=== PATIENT | female | born 1950 | race Caucasian/White ===

== ENCOUNTER 2016-07-26 05:55 | Inpatient (IN) | payer OTHER ==
[~2016-07-26 05:55] MED LIST: ceFAZolin 2 GM/DEXTROSE 100 ML IV ONE
[2016-07-26] MEDS ORDERED: BUPIVACAINE/EPI 0.25% 30 ML SDV ONE (06:35)
[2016-07-26] MEDS ORDERED: BACITRACIN 50,000 UNITS/10 ML SYR IRR ONE ×2 (06:35→10:09)
[2016-07-26] MEDS ORDERED: THROMBIN (RECOMBINANT) 20,000 UNIT VIAL TP ONE (06:35)
[2016-07-26] MEDS ORDERED: ceFAZolin 2 GM/DEXTROSE 100 ML IV ONE (07:00)
[2016-07-26] MEDS ORDERED: DEXAMETHASONE 10 MG/ML VIAL IV ONE (07:00)
[2016-07-26] MEDS ORDERED: LIDOCAINE 1% 5 ML SDV ONE (07:03)
[2016-07-26] MEDS ORDERED: PROPOFOL/EMULSION 500 MG/50 ML BOTTLE IV ONE ×3 (07:24→12:04)
[2016-07-26] MEDS ORDERED: fentaNYL 250 MCG/5 ML INJ ONE (07:24)
[2016-07-26] MEDS ORDERED: REMIFENTANIL HCL 1 MG VIAL ONE ×3 (07:24→12:04)
[2016-07-26] MEDS ORDERED: ROCURONIUM 50 MG/5 ML VIAL ONE (07:25)
[2016-07-26] MEDS ORDERED: LIDOCAINE 2% 100 MG/5 ML SYR IVP ONE (07:25)
[2016-07-26] MEDS ORDERED: ALBUMIN 5% 250 ML BOTTLE IV ONE (07:27)
[2016-07-26] MEDS ORDERED: DOPamine/DEXTROSE/250 ML BAG IV ONE (07:27)
[2016-07-26] MEDS ORDERED: SCOPOLAMINE HYDROBROMIDE 1.5 MG PATCH TD ONE (07:30)
[2016-07-26] MEDS ORDERED: MIDAZOLAM 2 MG/2 ML VIAL ONE (07:38)
[2016-07-26 09:13] LABS: BICARBONATE 22 mEq/L (22-26); MEASURED OXYGEN SATURATION 100 % (92-95); PCO2 34 mmHg (34-38); PO2 362 mmHg (65-75); TCO2 23 mEq/L (23-27)
[2016-07-26 10:28] LABS: % IMMATURE GRANULYOCYTES 0.5 % (0.0-1.1); ABSOLUTE IMMATURE GRANULOCYTES 0.04 10^3/uL (0.00-0.10); ADD DIFF? NO; ADD MORPH? NO; ADD SCAN? NO; ATYPICAL LYMPHOCYTE FLAG 0 (0-99); FRAGMENT RBC FLAG 0 (0-99); HEMATOCRIT 40.9 % (38.0-47.0); HEMOGLOBIN 14.2 g/dL (12.6-16.3); LEFT SHIFT FLG 10 (0-99); LIPEMIA HEMOLYSIS FLAG 90 (0-99); MEAN CELL HEMOGLOBIN 30.2 pg (27.9-34.1); MEAN CELL HEMOGLOBIN CONCENTR. 34.7 g/dL (32.4-36.7); MEAN PLATELET VOLUME 10.1 fL (8.7-11.7); PLATELET CLUMPS FLAG 0 (0-99); PLATELET COUNT 355 10^3/uL (150-400); RED CELL DISTRIBUTION WIDTH 12.7 % (11.5-15.2)
[2016-07-26 10:51] LABS: ALANINE AMINOTRANSFERASE 32 IU/L (9-52); ALBUMIN 4.1 g/dL (3.5-5.0); ALKALINE PHOSPHATASE 109 IU/L (38-126); ANION GAP 10 mEq/L (8-16); ASPARTATE AMINOTRANSFERASE 26 IU/L (14-46); BILIRUBIN,TOTAL 1.1 mg/dL (0.1-1.4); CARBON DIOXIDE 23 mEq/l (22-31); CHLORIDE 109 mEq/L (97-110); CREATININE 0.7 mg/dL (0.6-1.0); GLOMERULAR FILTRATION RATE > 60; GLUCOSE 186 mg/dL (70-100); MAGNESIUM 1.9 mg/dL (1.6-2.3); POTASSIUM 3.7 mEq/L (3.5-5.2); SODIUM 142 mEq/L (134-144)
[2016-07-26] MEDS ORDERED: POTASSIUM Cl (KCl) 20 MEQ/50 ML BAG IV ONE (11:00)
[2016-07-26] MEDS ORDERED: ACETAMINOPHEN 325 MG TAB PO PRN (12:50)
[2016-07-26] MEDS ORDERED: ONDANSETRON 4 MG/2 ML VIAL IVP PRN (12:50)
[2016-07-26] MEDS ORDERED: OXYCODONE/APAP 5/325 TAB PO PRN (12:50)
[2016-07-26] MEDS ORDERED: DIAZEPAM 5 MG TAB PO PRN (12:50)
[2016-07-26] MEDS ORDERED: BISACODYL 10 MG SUPP PR PRN (12:50)
[2016-07-26] MEDS ORDERED: DIAZEPAM 10 MG/2 ML SYR IVP PRN (12:50)
[2016-07-26] MEDS ORDERED: LACTULOSE 20 GM/30 ML UDCUP PO PRN (12:50)
[2016-07-26] MEDS ORDERED: MAGNESIUM HYDROXIDE 30 ML UDCUP PO PRN (12:50)
[2016-07-26] MEDS ORDERED: NS W/ 20 KCl/L 1,000 ML IV SCH (13:00)
[2016-07-26] MEDS ORDERED: PHENYLEPHRINE HCL 50 MG in D5W 250 ML IV SCH (13:30)
--- NOTE | 2016-07-26 14:01 | DX ---
Portable Chest 13:50 History: Postoperative central line placement, spinal cord tumor Comparison: None Findings: A right jugular venous catheter is present with tip in the superior vena cava. There is no pneumothorax. No pulmonary consolidation or pleural fluid. Impression: Excellent catheter position without pneumothorax.
--- NOTE | 2016-07-26 16:35 | POSTOPPROG ---
Post Op Note Date of Operation: 07/26/16 Surgeon: Michael Hayden Paper Cutter Operator: Ayla Montano MPAS PAC Anesthesia: GET(General Endotracheal) Pre-op Diagnosis: throacic spine mass Post-op Diagnosis: thoracic spine mass Indication: right leg weakness, cord compression Procedure: T5-7 lamienctomy and lesion resection. Inf/Abcess present in the surg proc area at time of surgery?: No PA Addendum - Addendum .: S: Incisional site pain, leg strength stable O: NAD A&Ox3 MAEx4, BUE and LLE 5/5, right HF/quad/ham 4-/5, EHL5/5. Incisional dressing c/d/i Plan: -Admit to ICU overnight, keep MAPs >85 -Optimize pain management -Advance diet as tolerated -Final path pending -Please notify NS with any change in neuro/motor exam
[2016-07-26] MEDS ORDERED: oxyCODONE IR 5 MG TAB PO PRN (16:39)
--- NOTE | 2016-07-26 18:24 | DX ---
Intraoperative Fluoroscopy History: Spinal cord tumor resection Dose = 4.47 mGy Findings: A single PA and lateral view of the cervical spine demonstrates normal alignment . An ET tu be is seen coursing through the trachea. Impression: Anatomic intraoperative alignment.
[2016-07-26] MEDS: METHOCARBAMOL 750 MG TAB PO PRN (19:10)
--- NOTE | 2016-07-26 19:48 | GOP ---
[f rep st] OPERATIVE REPORT DATE OF OPERATION: 07/26/2016 SURGEON: Dominick Hayden MD MANAGER NICU: Ayla Menchaca PA-C. 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 PROCEDURE PERFORMED: Thoracic laminectomy of T6-T7 for an intradural extramedullary neoplasm (mening ioma) (72685), microscope, intraoperative ultrasound guidance. FINDINGS: ESTIMATED BLOOD LOSS: 150 cc. INDICATIONS: The patient is a 66-year-old who had progressive difficulty with ambulation, spastic ga it. MRI demonstrated a large thoracic meningioma and I suggested resection. There was cord compress ion and edema in her spinal cord. The risk of paraplegia, CSF leak, recurrence of the meningioma, we re all discussed. The risk of infection was also discussed. She understood there was a chance that surgery could leave her paralyzed in the leg and she accepted those risks and she wanted to proceed. DESCRIPTION OF PROCEDURE: The patient was taken to the operating room, placed in the supine position . Arterial line was placed. General anesthesia was begun. We took efforts to keep her mean arteria l pressure at 85-90. Baseline motor and somatosensory-evoked potentials were measured, and the right leg was less than the left leg, and both of the legs were diminished compared to the arms. She was flipped prone onto the Wilver table. Care was taken to pad all points of contact. Repeat motors an d SSEPs were recorded and they were stable. She was then sterilely prepped and draped in the usual f ashion. We made a stab incision above the C7 spinous process. We attached a craniofacial screw to t he C7 spinous process and then we made another stab incision at approximately T6 and here we placed a nother screw at T6. We performed an O-arm spin, counting from C2 down to C7, then performed a second O-arm spin, counting from C7 down to T6. On the 2nd O-arm spin, we were indeed at the T6 spinous pr ocess with our fiducial, and we could see the intraspinal calcification from the tumor on the O-arm s pin. This provided the best localizing data possible. We removed the rostral fiducial from the C7 s pinous process and closed that incision. We then went on down and extended our incision inferiorly f rom the T5 spinous process down through the T7 spinous process. The subcutaneous tissue was dissecte d using Bovie cautery, down through the fascia, and a subperiosteal dissection was made down the infe rior lamina of T5. The complete lamina of T6 and 7 was exposed and the rostral lamina of T8 was expo sed. A self-retaining retractor was placed. We removed the spinous processes of T6 and T7 and the i nferior spinous process of T5 and we performed en bloc laminectomy of T6-T7 without changes in the mo tor or somatosensory-evoked potentials. We waxed the bony edges, placed a small piece of Gelfoam in the gutters of the spinal canal, then opened the dura in stepwise fashion, preserving the lina and the arachnoid membrane deep. We did this directly over the tumor. We used intraoperative ultrasound gu idance prior to dural opening to confirm the location of the tumor, even though we had already used t he O-arm to prove its location. The ultrasound did indicate that the tumor was directly beneath our laminectomy. We opened the dura and then sutured it using Nurolon sutures. We then took clips and c lipped the lina and arachnoid up to the dural edge. We are looking at an intradural extramedullary tu mor. It appeared to be a meningioma. We sent a small piece of it to pathology for frozen section an d it was consistent with meningioma. We debulked it centrally which made it more mobile, and it was relatively easy to pull up off the spinal cord, but there were number of arachnoid membranes on the d eep surface that had to be divided to get up off the cord itself and out laterally. One of the thora cic nerve roots was intimately associated with the tumor and we had to dissect this away using micron eurosurgical technique. We preserved the nerve root. We delivered the tumor from the spinal canal a nd it was a gross total resection of the tumor. We then coagulated its dural pedicle and coagulated all the dura in this area with the bipolar cautery to try to destroy the cells that were still locate d within the dura itself. We had achieved meticulous hemostasis intradurally. We then closed the in cision with Prolene suture, irrigated, and then a Valsalva, then there was no leakage of CSF. We the n closed the incision in multiple layers using Vicryl sutures and a running PDS was placed in the ski n itself. The patient was reversed from anesthesia, extubated, and transferred to the recovery room in stable condition. COMPLICATIONS: None. /[id number]/MODL
[2016-07-26] MEDS: FAMOTIDINE 20 MG/NACL 50 ML IV SCH (21:35)
[2016-07-26] MEDS: TEARS/DEXTRAN 70/HYPROMELLOSE 15 ML OPHT.BTL EACHEYE PRN (21:36)
[2016-07-26] MEDS: SENNOSIDES/DOCUSATE SODIUM TAB PO SCH (21:36)
--- NOTE | 2016-07-27 02:27 | CPEKG ---
Heart Rate: 111 RR Interval: 541 QRSD Interval: 108 QT Interval: 368 QTC Interval: 500 QRS [place]: 19 T Wave [place]: 24 EKG Severity - ABNORMAL ECG - EKG Impression: ATRIAL FLUTTER, A-RATE 234 EKG Impression: VENTRICULAR PREMATURE COMPLEXES Electronically Signed By: Deborah Gaspar 27-Jul-2016 07:28:46
[2016-07-27] MEDS ORDERED: METOPROLOL TARTRATE 5 MG/5 ML INJ IVP PRN (03:07)
--- NOTE | 2016-07-27 04:54 | GCON ---
[f rep ] CONSULTATION MEDICINE CONSULTATION. DATE OF CONSULTATION: 07/27/2016 REFERRING PHYSICIAN: Dominick Hayden MD REASON FOR CONSULTATION: This is a medicine consultation at the request of Dr. Keshav Hayden for evaluation and management of arrhythmia. CHIEF COMPLAINT: Gait abnormalities. HISTORY: This is a 66-year-old female, who is under the care of Dr. Hayden for a thoracic intradural extramedullary meningioma. She is status post laminectomy and lesion resection yesterday. She is being monitored in the ICU overnight and is on low-dose phenylephrine to keep MAPS greater than 85. I am asked to evaluate the patient for concerns of arrhythmia, question of atrial flutter. On evaluation of the patient, she has no current complaints. She states she is able to move her toes which is very good news for her. She has no chest pain or sense of palpitations. She is not dizzy or lightheaded. She has no known heart history. PAST MEDICAL HISTORY: 1. Includes thoracic meningioma. 2. Hypothyroidism. PAST SURGICAL HISTORY: 1. Laminectomy as per HPI. 2. Right TKA. FAMILY HISTORY: This was reviewed and noncontributory. SOCIAL HISTORY: Patient is to a orchestra teacher. She is a nonsmoker. Nondrug user. No significant alcohol use. REVIEW OF SYSTEMS: A 10-point review of systems obtained. Negative except as per HPI. HOME MEDICATIONS: Include: 1. Levothyroxine. 2. Pristiq. 3. Cholecalciferol. 4. Zolpidem. 5. Multivitamin. 6. Aspirin. ALLERGIES: Hydrocodone. PHYSICAL EXAMINATION: VITAL SIGNS: BP 141/74, heart rate 83, respiratory rate 16, O2 sats 97% on 2 L. Temperature is 37.4. GENERAL APPEARANCE: Well- developed/well-nourished female. She is awake and alert. She is in no acute distress. EYES: Anicteric. HENT: Oropharynx clear. Moist mucous membranes. CARDIOVASCULAR: Regular rate and rhythm with occasional irregularity, consistent with PVCs. No murmurs, rubs, or gallops. PULMONARY: CTA bilaterally to anterior exam. ABDOMEN: Soft, nontender, nondistended. EXTREMITIES: No clubbing, cyanosis, or edema. SKIN: Warm, dry, well perfused. NEURO/PSYCH: Oriented and appropriate, pleasant. CLINICAL DATA: Labs reviewed. CBC is unremarkable. Chemistry notable for glucose of 186 preoperatively. EKG reviewed, interpreted independently by myself. Computer reads as atrial fibrillation, but it appears more consistent with frequent PVCs. Telemetry reviewed and also appears consistent with PVCs. Chest x-ray from yesterday reviewed and interpreted independently by myself as unremarkable. No infiltrates or pulmonary edema. ASSESSMENT AND PLAN: This is a 66-year-old female, status post laminectomy and tumor resection for thoracic meningioma, with postoperative tachyarrhythmia. 1. Tachyarrhythmia. This seems to have resolved. Her heart rate is now back in the 70s to 80s. She did have a run of what appears to be most consistent with frequent PVCs versus less likely SVT. Plan will be to continue to monitor on telemetry. Will obtain troponins and trend those. So long as there is no further ongoing concerning rhythms, do not think she requires further workup, but if this should recur definitely would obtain echocardiogram and likely cardiology consultation at that time. Will check electrolytes and replete if indicated. 2. Thoracic intradural extramedullary meningioma. Patient is status post laminectomy and tumor resection. She is doing well in the postoperative setting. Her pain is controlled. 3. Hyperglycemia. This seems to be an isolated hyperglycemic episode in review of prior labs. Will repeat a BMP in the morning to be sure this is not an ongoing issue. This certainly could be a stress hyperglycemic event. 4. Hypothyroidism, with a most recent TSH being 2.6, but this was approximately 1 year ago. Will repeat TSH in the morning to be sure that this is not contributing to her arrhythmia. Patient is new to my care. Old records reviewed and summarized as per HPI and past medical history. History and concerns reviewed with neurosurgeon KANDIS. Thank you for this consultation. Medicine will continue to follow while patient is in-house. /[id number]/MODL MTDD
[2016-07-27 05:19] LABS: ANION GAP 5 mEq/L (8-16); CALCIUM 8.9 mg/dL (8.5-10.4); CARBON DIOXIDE 26 mEq/l (22-31); CHLORIDE 105 mEq/L (97-110); CREATININE 0.8 mg/dL (0.6-1.0); GLOMERULAR FILTRATION RATE > 60; GLUCOSE 97 mg/dL (70-100); MAGNESIUM 1.7 mg/dL (1.6-2.3); POTASSIUM 4.4 mEq/L (3.5-5.2); SODIUM 136 mEq/L (134-144)
[2016-07-27 05:23] LABS: TROPONIN I 0.013 ng/mL (0-0.034)
[2016-07-27] MEDS: FAMOTIDINE 20 MG/NACL 50 ML IV SCH (08:12)
[2016-07-27] MEDS: SENNOSIDES/DOCUSATE SODIUM TAB PO SCH ×2 (08:12→21:28)
[2016-07-27] MEDS ORDERED: MAGNESIUM SULF 2 GM/WATER 50 ML IV ONE (09:02)
[2016-07-27] MEDS: TEARS/DEXTRAN 70/HYPROMELLOSE 15 ML OPHT.BTL EACHEYE PRN (09:06)
--- NOTE | 2016-07-27 11:46 | HOSPPROG ---
Hospitalist Progress Note Assessment/Plan: #Tachyarrhythmia -NSR this morning with PVCs. K >4, give Mg. TSH normal #Acute back pain: does not tolerate oral opioids well, but has been tolerating IV morphine, so added PO for longer control. If not effective, will add Nucyenta #Thoracic extramedullary meningioma: s/p resection and T5-7 laminectomy #DVT px: SCDs Subjective: no chest pain or SOB Objective: Vital Signs Temp Pulse Resp BP Pulse Ox 36.6 C 79 20 148/70 H 97 07/27/16 07:00 07/27/16 11:00 07/27/16 11:00 07/27/16 11:00 07/27/16 11:00 Laboratory Results 07/26/16 10:17 07/27/16 04:00 07/26/16 07/27/16 07/28/16 05:59 05:59 05:59 Intake Total 4375 Output Total 3750 Balance 625 ICD10 Worksheet Patient Problems: Problems Problem Status Diagnosed Back pain Acute - ICD10 Problem Qualifiers (1) Back pain
--- NOTE | 2016-07-27 12:04 | GCON ---
[f rep st] CONSULTATION PULMONARY/CRITICAL CARE CONSULTATION. REFERRING PHYSICIAN: Dominick Hayden MD REASON FOR REFERRAL: Evaluation and management of hyperglycemia and blood pressure management. HISTORY: The patient is a 66-year-old woman, who about a week ago began to notice some weakness in h er lower extremities. She was seen and referred to Dr. Keshav Hayden. An MRI suggested a meningioma at T6-T7. She had this resected today. She reports significant pain in her back at the surgical site, but has improved leg strength. She has no prior history of hyperglycemia or difficulties with blood pressure. PAST MEDICAL HISTORY: 1. Thoracic meningioma. 2. Hypothyroid. MEDICATIONS: At the time of admission include levothyroxine, Pristiq and cholecalciferol. ALLERGIES: Hydrocodone. SOCIAL HISTORY: The patient is to a life consultant. She does not smoke and denies excessive a lcohol intake. FAMILY HISTORY: Unremarkable. REVIEW OF SYSTEMS: A 10-point review of systems adds nothing to the history of present illness. PHYSICAL EXAMINATION: GENERAL: The patient is awake, alert, and in no acute distress. Lying flat in bed. VITAL SIGNS: Her blood pressure is 135/78. Heart rate 80. Oxygen saturation 96% on room ai r. HEENT: Normocephalic and atraumatic. No icterus. NECK: No JVD. Trachea is midline. CHEST: Clear to auscultation. CARDIAC: Regular rate and rhythm without murmur. ABDOMEN: Soft, nontender. Bowel sounds are present. EXTREMITIES: No clubbing, cyanosis, or edema. LABORATORY DATA: Chemistry group was normal with the exception of blood glucose of 186. CBC is norm al. Arterial blood gas shows a pH of 7.43 with a pO2 of 262, CO2 34, and a bicarbonate of 23. A [facility] x-ray shows normal lungs and pleura with a right internal jugular catheter in place. ASSESSMENT: 1. Status post thoracic meningioma resection. The patient has had improved neural function since morton rgery. She has significant postoperative pain that was not relieved with 2 mg of morphine. 2. Hyperglycemia. The patient has no prior history of diabetes. She has an isolated increase in bl ood sugar. This could be related to D5 or undiagnosed glucose intolerance. 3. Blood pressure management. The patient is currently normotensive. There is a goal of maintainin g mean arterial pressure of greater than 85 for the next 5-7 days in order to optimize cord perfusion . The patient has currently met that goal without any intervention. RECOMMENDATIONS: 1. Repeat glucose. 2. Pain control, with increase in morphine dose, then perhaps starting a SENIOR QUALITY ANALYST or long-acting oral shelia cotics if pain is not controlled. 3. Use phenylephrine if necessary to maintain good mean arterial pressure. /[id number]/MODL
[2016-07-27] MEDS ORDERED: IBUPROFEN 200 MG TAB PO PRN (13:05)
[2016-07-27] MEDS: METHOCARBAMOL 750 MG TAB PO PRN ×2 (14:25→22:38)
--- NOTE | 2016-07-27 16:29 | SOAPPROG ---
SORUEL Progress Note Assessment/Plan: Assessment: Doing well postop after thoracic lami for resection of meningioma. Will need a brief in patient rehab stay to learn how to walk again since she was unable to walk prior to surgery. Plan: 07/27/16 16:28 Subjective: Doing great. Legs feel improved postop from preop. Some incisional pain. Objective: Vital Signs Temp Pulse Resp BP Pulse Ox 36.9 C 93 19 107/63 95 07/27/16 12:00 07/27/16 15:00 07/27/16 15:00 07/27/16 15:00 07/27/16 15:00 Laboratory Results 07/26/16 10:17 07/27/16 04:00 07/26/16 07/27/16 07/28/16 05:59 05:59 05:59 Intake Total 4375 2020 Output Total 3750 850 Balance 625 1170 Moving feet and legs well. ICD10 Worksheet Patient Problems: Problems Problem Status Diagnosed Back pain Acute
[2016-07-27] MEDS: FAMOTIDINE 20 MG TAB PO SCH (21:27)
[2016-07-27] MEDS: TAPENTADOL HCL 50 MG TAB PO PRN (21:28)
[2016-07-28 05:25] LABS: ANION GAP 8 mEq/L (8-16); CALCIUM 8.4 mg/dL (8.5-10.4); CARBON DIOXIDE 25 mEq/l (22-31); CHLORIDE 101 mEq/L (97-110); CREATININE 0.7 mg/dL (0.6-1.0); GLOMERULAR FILTRATION RATE > 60; GLUCOSE 110 mg/dL (70-100); POTASSIUM 3.9 mEq/L (3.5-5.2); SODIUM 134 mEq/L (134-144)
--- NOTE | 2016-07-28 07:13 | NEUSURGPN ---
Assessment/Plan: A: 66 yo F POD#2 s/p T5-7 laminectomy and lesion resection. Plan: -Path pending -PT/OT, encourage OOB -close monitoring of incision - blisters noted from dressing, new soft dressing applied -Difficulty with walking pre op, will need rehab. rehab consult ordered -TEDs, SCDs, encourage ambulation. D/w Dr Hayden at time of sx and no lovenox -Pain management -Spine precautions, no brace -OK for dc to rehab once placement obtained -Call NS with any issues Subjective: Pt resting in bed, pain well managed. Objective: AAOx3 NAD VSS MAEx4 Motor 5/5 BLE Incision cdi steri strips intact. fluid filled blisters noted when tape removed. new soft dressing applied. hypoallergenic tape used. Urinary Catheter in Place: No Catheter Insertion Date: 07/26/16 Neurosurgery Physical Exam - Vitals, I&O, Labs I and O 07/27/16 07/28/16 07/29/16 05:59 05:59 05:59 Intake Total 4375 2720 Output Total 3750 1600 Balance 625 1120 Weight 83.9 kg Intake: Oral (ml) 700 1620 IV Intake (ml) 3675 800 IV Infused (ml) 300 Phenylephrine HCl 50 mg 300 In D5w 250 ml @ Titrate IV CONT JANELLE Rx#: [id number] Output: Urine (ml) 3550 1600 Catheter 3550 Bedside Commode 1600 Estimated Blood Loss (ml) 200 Vital Signs Temp Pulse Resp BP Pulse Ox 37.0 C 79 15 139/59 H 100 07/27/16 20:00 07/28/16 04:00 07/28/16 04:00 07/28/16 04:00 07/28/16 04:00 Laboratory Results 07/26/16 10:17 07/28/16 04:40 ICD10 Worksheet Patient Problems: Problems Problem Status Diagnosed Back pain Acute
[2016-07-28] MEDS: LEVOTHYROXINE 175 MCG TAB PO SCH (07:47)
[2016-07-28] MEDS: FAMOTIDINE 20 MG TAB PO SCH ×2 (07:57→20:03)
[2016-07-28] MEDS: METHOCARBAMOL 750 MG TAB PO PRN ×2 (07:57→20:03)
[2016-07-28] MEDS: SENNOSIDES/DOCUSATE SODIUM TAB PO SCH ×2 (08:27→20:03)
[2016-07-28] MEDS: Desvenlafaxine Succinate [Pristiq] 25 MG PO SCH (08:27)
[2016-07-28] MEDS: MULTIVITAMINS 1 EACH TAB PO SCH (08:27)
[2016-07-28] MEDS: CHOLECALCIFEROL VIT D3 2,000 UNITS TAB/CAP PO SCH (08:27)
[2016-07-28] MEDS: ONDANSETRON DISINTEGRATING 4 MG TAB PO PRN ×2 (08:30→15:50)
[2016-07-28] MEDS: POLYETHYLENE GLYCOL 3350 17 GM PKT PO PRN (09:32)
--- NOTE | 2016-07-28 13:35 | HOSPPROG ---
Hospitalist Progress Note Assessment/Plan: #Tachyarrhythmia -NSR with PVCs. None since initial episode. K/Mg at goal. TSH WNL #Acute back pain: morphine brings pain to a 3. Rec dosing before therapy. Also Nucentya was added. Bowel regimen #Thoracic extramedullary meningioma: s/p resection and T5-7 laminectomy #DVT px: SCDs #Disp: inpatient rehab to evaluate Subjective: pain worse now that she is more active Objective: Vital Signs Temp Pulse Resp BP Pulse Ox 37.2 C 75 18 114/63 95 07/28/16 12:00 07/28/16 12:00 07/28/16 12:00 07/28/16 12:00 07/28/16 12:00 Laboratory Results 07/26/16 10:17 07/28/16 04:40 07/27/16 07/28/16 07/29/16 05:59 05:59 05:59 Intake Total 4375 2720 250 Output Total 3750 1600 Balance 625 1120 250 - Physical Exam Constitutional: no apparent distress Eyes: PERRL Ears, Nose, Mouth, Throat: moist mucous membranes Cardiovascular: regular rate and rhythym, no murmur, rub, or gallop Respiratory: no respiratory distress Gastrointestinal: normoactive bowel sounds Genitourinary: no bladder fullness Skin: warm Musculoskeletal: full muscle strength Neurologic: AAOx3 Psychiatric: interacting appropriately ICD10 Worksheet Patient Problems: Problems Problem Status Diagnosed Back pain Acute - ICD10 Problem Qualifiers (1) Back pain
[2016-07-28] MEDS ORDERED: ENOXAPARIN 40 MG/0.4 ML SYR SC SCH (14:00)
[2016-07-28] MEDS: ZOLPIDEM TARTRATE 5 MG TAB PO SCH (22:15)
[2016-07-29] MEDS: METHOCARBAMOL 750 MG TAB PO PRN ×3 (05:05→23:31)
[2016-07-29] MEDS: LEVOTHYROXINE 175 MCG TAB PO SCH (05:05)
[2016-07-29 05:58] LABS: ANION GAP 5 mEq/L (8-16); CALCIUM 8.4 mg/dL (8.5-10.4); CARBON DIOXIDE 30 mEq/l (22-31); CHLORIDE 102 mEq/L (97-110); CREATININE 0.7 mg/dL (0.6-1.0); GLOMERULAR FILTRATION RATE > 60; GLUCOSE 91 mg/dL (70-100); POTASSIUM 4.1 mEq/L (3.5-5.2); SODIUM 137 mEq/L (134-144)
--- NOTE | 2016-07-29 07:30 | SOAPPROG ---
SOAP Progress Note Assessment/Plan: Assessment: 66 yo F POD #3 T5-7 laminectomy for resection of meningioma Plan: stable PT/OT scd/shereen/lovenox for dvt prophylaxis dc production control planner looking at rehab options please call with neuro changes discussed with Dr Hayden 07/29/16 07:27 Subjective: continued incisional pain, no leg pain/weakness. Objective: Vital Signs Temp Pulse Resp BP Pulse Ox 37.1 C 78 17 131/83 H 95 07/29/16 04:00 07/29/16 04:00 07/29/16 04:00 07/29/16 04:00 07/29/16 04:00 Laboratory Results 07/26/16 10:17 07/29/16 05:06 07/28/16 07/29/16 07/30/16 05:59 05:59 05:59 Intake Total 2720 750 Output Total 1600 Balance 1120 750 AAOX4, +FC PERRL, EOMI, no facial droop 5/5 + light touch C/D/I ICD10 Worksheet Patient Problems: Problems Problem Status Diagnosed Back pain Acute
--- NOTE | 2016-07-29 08:52 | HOSPPROG ---
Hospitalist Progress Note Assessment/Plan: Patient is a 66-year-old female underwent a laminectomy and lesion resection. Today is my 1st encounter with the patient. Chart reviewed. #Tachyarrhythmia * TSH stable * evaluated her telemetry strip this afternoon/ sinus rhythm w freq PAC's #Acute back pain: * pain overall controlled * trial of lidoderm patches #Thoracic extramedullary meningioma: s/p resection of meningioma and T5-7 laminectomy/POD #4 #constipation * bowel protocol #hypothyroidism: Synthroid #DVT px: SCDs/LMWH #Dispo: pending/ IP rehab to see Subjective: Patient states she is having ongoing back pain, but better today. Objective: Vital Signs Temp Pulse Resp BP Pulse Ox 37.7 C 74 17 148/81 H 96 07/29/16 07:43 07/29/16 07:43 07/29/16 07:43 07/29/16 07:43 07/29/16 07:43 Laboratory Results 07/26/16 10:17 07/29/16 05:06 07/28/16 07/29/16 07/30/16 05:59 05:59 05:59 Intake Total 2720 750 Output Total 1600 Balance 1120 750 - Physical Exam Constitutional: no apparent distress, appears nourished, uncomfortable Eyes: PERRL Ears, Nose, Mouth, Throat: hearing normal Cardiovascular: regular rate and rhythym, other (few frequent early beats ausculated) Respiratory: no respiratory distress Gastrointestinal: soft, non-tender abdomen Skin: warm Musculoskeletal: generalized weakness Neurologic: AAOx3 Psychiatric: interacting appropriately, not anxious ICD10 Worksheet Patient Problems: Problems Problem Status Diagnosed Back pain Acute
[2016-07-29] MEDS: POLYETHYLENE GLYCOL 3350 17 GM PKT PO PRN (09:30)
[2016-07-29] MEDS: ENOXAPARIN 40 MG/0.4 ML SYR SC SCH (09:31)
[2016-07-29] MEDS: MULTIVITAMINS 1 EACH TAB PO SCH (09:31)
[2016-07-29] MEDS: FAMOTIDINE 20 MG TAB PO SCH ×2 (09:31→21:26)
[2016-07-29] MEDS: CHOLECALCIFEROL VIT D3 2,000 UNITS TAB/CAP PO SCH (09:32)
[2016-07-29] MEDS: SENNOSIDES/DOCUSATE SODIUM TAB PO SCH ×2 (09:32→21:27)
[2016-07-29] MEDS: Desvenlafaxine Succinate [Pristiq] 25 MG PO SCH (09:34)
[2016-07-29] MEDS: TAPENTADOL HCL 50 MG TAB PO PRN ×2 (09:49→20:00)
[2016-07-29] MEDS: LIDOCAINE 5% 1 EA PATCH TD SCH (12:08)
[2016-07-29] MEDS: diphenhydrAMINE 25 MG CAP PO PRN ×2 (14:57→20:00)
[2016-07-29] MEDS ORDERED: PATCH REMOVAL 1 EA PATCH TD SCH (21:00)
[2016-07-29] MEDS: ZOLPIDEM TARTRATE 5 MG TAB PO SCH (21:28)
[2016-07-30] MEDS: LEVOTHYROXINE 175 MCG TAB PO SCH (05:11)
--- NOTE | 2016-07-30 07:00 | NEUSURGPN ---
Assessment/Plan: Assessment: 66 yo F POD #4 T5-7 laminectomy for resection of meningioma Plan: -neuro stable -CDI -PT/OT-CPM -scd/shereen/lovenox for dvt prophylaxis -dc order planner looking at rehab options -please call with neuro changes -discussed/seen with Dr Hayden Subjective: Awake and alert. NAD. No new complaints. Rested thru the night. No griffiths/neck/ chest/abd or gu complaints. No f/c/n/v/d. Objective: AAOX4, +FC PERRL, EOMI, no facial droop 5/5 + light touch C/D/I Neuro Check Frequency: per routine Catheter Insertion Date: 07/26/16 - Physician Discussed Patient with DrReginald: Catracho Patient Seen by : Catracho Neurosurgery Physical Exam - Vitals, I&O, Labs I and O 07/29/16 07/30/16 07/31/16 05:59 05:59 05:59 Intake Total 750 800 Output Total 1200 Balance 750 -400 Intake: Oral (ml) 750 800 Output: Urine (ml) 1200 Toilet 1200 Other: Intake Quantity Yes Yes Sufficient Number of Voids Toilet 1 4 Vital Signs Temp Pulse Resp BP Pulse Ox 37.0 C 101 H 17 151/88 H 95 07/30/16 03:48 07/30/16 03:48 07/30/16 03:48 07/30/16 03:48 07/30/16 03:48 Laboratory Results 07/26/16 10:17 07/29/16 05:06 ICD10 Worksheet Patient Problems: Problems Problem Status Diagnosed Back pain Acute
--- NOTE | 2016-07-30 07:07 | PDIAF ---
- Diagnosis Diagnosis: s/p T spine meningioma resection Code Status: Full Code - Medication Management Discharge Medications: Medications to Continue on Transfer Cholecalciferol Vit D3 [Vitamin D3 2000 units tab (OTC)] 2,000 units PO DAILY [Last Taken 07/24/16] Desvenlafaxine Succinate [Pristiq] 25 mg PO DAILY 07/24/16 [Last Taken 07/26/16] Levothyroxine [Synthroid 175 mcg (*)] 175 mcg PO DAILY06 07/24/16 [Last Taken ] Multivitamins [Multivitamin (*)] 1 each PO DAILY 07/24/16 [Last Taken 07/24/16] Zolpidem Tartrate [Ambien 5MG (*)] 5 mg PO HS 07/24/16 [Last Taken 07/25/16] Enoxaparin [Lovenox 40 MG (*)] 40 mg SC DAILY #10 syr 07/30/16 [Last Taken Unknown] Ibuprofen [Motrin (*)] 400 mg PO Q8 PRN #0 tab 07/30/16 [Last Taken Unknown] Lidocaine 5% [Lidoderm 5% Patch (*)] 1 ea TD DAILY #7 patch 07/30/16 [Last Taken Unknown] Methocarbamol [Robaxin 750 mg (*)] 750 mg PO QID PRN #60 tab 07/30/16 [Last Taken Unknown] Patch Removal 1 ea TD DAILY21 #0 patch 07/30/16 [Last Taken Unknown] Sennosides/Docusate Sodium [Senokot-S] 1 - 2 tab PO BID #30 tab 07/30/16 [Last Taken Unknown] Tapentadol HCl [Nucynta 50 MG (*)] 50 mg PO Q6 PRN #60 tab 07/30/16 [Last Taken Unknown] Tears/Dextran 70/Hypromellose [Natural Balance Tears (*)] 1 drop EACHEYE Q2 PRN #0 opht.btl 07/30/16 [Last Taken Unknown] morphINE IR [morphINE IR 15 mg (*)] 15 mg PO Q4HRS PRN #90 tab 07/30/16 [Last Taken Unknown] Shipping Agent Antibiotics: none Discharge Medications: Refer to the Discharge Home Medication list for PRN reason. PICC Care - Routine: N/A - Orders Services needed: Registered Nurse, Master Mechanical Engineering Specialist, Physical Therapy, Occupational Therapy Oxygen: to keep O2 sat greater than 90% Diet Recommendation: no restrictions on diet Diet Texture: Regular Texture Diet Tube feeding: n/a Carlos Stockings Discontinue Date: continue until walking well Wound Care Instructions: leave steristrips in place - Follow Up Care Current Providers and Referrals: Joy Holland MD [Primary Care Provider] - Michael Hayden MD [Medical Doctor] - (follow up for a recheck in 2-3 weeks)
[2016-07-30 07:11] VITALS: BP 157/85; PULSE 107; RESP 18; TEMP 98.3; O2SAT 96
[2016-07-30] MEDS: METHOCARBAMOL 750 MG TAB PO PRN (08:17)
[2016-07-30] MEDS: CHOLECALCIFEROL VIT D3 2,000 UNITS TAB/CAP PO SCH (08:17)
[2016-07-30] MEDS: SENNOSIDES/DOCUSATE SODIUM TAB PO SCH (08:17)
[2016-07-30] MEDS: TAPENTADOL HCL 50 MG TAB PO PRN (08:17)
[2016-07-30] MEDS: FAMOTIDINE 20 MG TAB PO SCH (08:17)
[2016-07-30] MEDS: MULTIVITAMINS 1 EACH TAB PO SCH (08:17)
[2016-07-30] MEDS: LIDOCAINE 5% 1 EA PATCH TD SCH (08:18)
[2016-07-30] MEDS: ENOXAPARIN 40 MG/0.4 ML SYR SC SCH (08:18)
[2016-07-30] MEDS: Desvenlafaxine Succinate [Pristiq] 25 MG PO SCH (08:19)
--- NOTE | 2016-07-30 09:08 | WOCRNPDOC ---
[facility] Advanced Assessment Note - Skin Integrity Problem, Advanced Assess Medial Back Blister Dressing Type: Open to Air Wound Bed Constitution: Intact Sanguineous Blister Site Measurement - Head-to-Toe Length X Width X Depth (cm): 1.5x0.5xraised blister. Wound care will not follow either of these wounds. Please reconsult if they worsen. Skin Integrity Problem Comment: No concerns. Neck blister Dressing Type: Allevyn Life Dressing Description: Clean/Dry, Intact Integumentary Issue Intervention: Visualized Under Dressing Wound Bed Color: [place] Wound Bed Constitution: Smooth Tissue Site Measurement - Head-to-Toe Length X Width X Depth (cm): 2x1.5x0.1 Skin Integrity Problem Comment: Shallow partial thickness blister, likely serous filled, that is deroofing due to adhesive on Allevyn. Orders written.
[2016-07-30] MEDS ORDERED: MAGNESIUM CITRATE 300 ML BOTTLE PO ONE (09:21)
--- NOTE | 2016-07-30 09:30 | HOSPPROG ---
Hospitalist Progress Note Assessment/Plan: Patient is a 66-year-old female underwent a laminectomy and lesion resection. #Tachyarrhythmia * TSH stable * evaluated her telemetry strip / sinus rhythm w freq PAC's * recommending OP Holter monitor/ low dose beta kami (bid)/ patient prefers no meds at this time/ her daughter is an RN who work with cardiology and will make sure her mom gets further f/u #Acute back pain: * pain overall controlled * trial of Lidoderm patches #Thoracic extramedullary meningioma: s/p resection of meningioma and T5-7 laminectomy/POD #5 #constipation * bowel protocol * will give mag citrate x 1 now #blisters from tape * appreciate wound care #hypothyroidism: Synthroid #DVT px: SCDs/LMWH #Dispo: IP rehab today Subjective: Milka is feeling overall fine. Looking forward to going to rehab. Objective: Vital Signs Temp Pulse Resp BP Pulse Ox 36.8 C 107 H 18 157/85 H 96 07/30/16 07:10 07/30/16 07:10 07/30/16 07:10 07/30/16 07:10 07/30/16 07:10 Laboratory Results 07/26/16 10:17 07/29/16 05:06 07/29/16 07/30/16 07/31/16 05:59 05:59 05:59 Intake Total 750 800 Output Total 1200 Balance 750 -400 - Physical Exam Constitutional: no apparent distress, appears nourished Eyes: PERRL Ears, Nose, Mouth, Throat: hearing normal Cardiovascular: regular rate and rhythym, No tachycardia Respiratory: no respiratory distress Gastrointestinal: normoactive bowel sounds, distension (slight) Skin: warm, other (blisters along upper back area ) Musculoskeletal: generalized weakness Neurologic: AAOx3 Psychiatric: interacting appropriately, not anxious ICD10 Worksheet Patient Problems: Problems Problem Status Diagnosed Back pain Acute
== END 2016-07-30 13:05 | DRG 29 ==
LOC: F3N 05:55 → F2N 14:19 → F3N 07-28 07:07
PROVIDERS: ADMIT Neurological Surgery; ATTEND Neurological Surgery
PROC: 00BT0ZZ Excision of Spinal Meninges, Open Approach (ICD-10-PCS; principal; 2016-07-26 07:51)
DX: D32.1 Benign neoplasm of spinal meninges (principal); G95.29 Other cord compression; E03.9 Hypothyroidism, unspecified; R73.9 Hyperglycemia, unspecified; K59.00 Constipation, unspecified
CPT/HCPCS: 97110-GP; 97116-GP; 97162-GP; 97165-GO; 97166-GO; 97530-GO; 97530-GP; 97535-GO; C1713; J0690; J1265; J1650; J2001; J2250; J2370; J2704; J3010; P9041

== ENCOUNTER 2016-07-30 11:27 | Inpatient (IN) | payer OTHER ==
[2016-07-30] MEDS ORDERED: TEARS/DEXTRAN 70/HYPROMELLOSE 15 ML OPHT.BTL EACHEYE PRN (14:42)
[2016-07-30] MEDS ORDERED: BISACODYL 10 MG SUPP PR PRN (14:46)
--- NOTE | 2016-07-30 15:20 | PDOREHIP ---
Admission [facility] - Admission - 3 Day Assessment Period Admission Date/Day 1: 07/30/16 Day 2: 07/31/16 Day 3: 08/01/16 - Active Diagnoses Comorbidities and Co-existing Conditions at Admission: 14474. None of the Above - Skin Conditions Unhealed Pressure Ulcer (1 or more/Stage 1 or >)-Admission: 0. No (Blisters on back and right neck due to adhesive tape allergy)
[2016-07-30] MEDS: TAPENTADOL HCL 50 MG TAB PO PRN ×2 (16:13→23:10)
[2016-07-30] MEDS: ONDANSETRON DISINTEGRATING 4 MG TAB PO PRN (16:13)
[2016-07-30] MEDS: METHOCARBAMOL 750 MG TAB PO PRN ×2 (16:13→23:10)
[2016-07-30] MEDS ORDERED: HYDROCORTISONE 1% CREAM TP PRN (16:22)
--- NOTE | 2016-07-30 16:27 | GHP ---
[f rep st] HISTORY AND PHYSICAL POST ADMISSION PHYSICIAN EVALUATION AND REHABILITATION TREATMENT PLAN DATE OF ADMISSION: 07/30/2016 DATE OF EVALUATION: 07/30/2016 TIME OF EVALUATION: 1540 [facility]FERR[facility]AC[facility] REFERRING PHYSICIAN: Dr. Hayden IMPAIRMENT GROUP: 4.13 DATE OF ONSET: 07/23/2016 REHABILITATION DIAGNOSIS: Debility status post spinal meningioma with excision and T6-T7 laminectomy. CONSULTING PHYSICIANS: Hospitalist Service, initially Dr. Jones. Pulmonology and Critical Care, Dr. Nguyen. ETIOLOGIC DIAGNOSIS: Other nontraumatic spinal cord dysfunction. DATE OF SURGERY: 07/26/2016 HISTORY OF PRESENT ILLNESS: Mrs. Mason had progressive difficulty with ambulating occurring over a period of weeks to months. It was particularly noticeable during the recovery from a left total knee replacement. Her orthopedic surgeon referred her to Neurology. Neurology examined her and ordered an MRI which showed a mass compressing the thoracic spine. She was admitted to [facility] on 07/26/2016. She underwent surgery on 07/26/2016 with excision a meningioma and T5-T7 fusion. Her postoperative course was complicated by cardiac tachyarrhythmia, hypotension, pain, nausea, urinary retention, and skin blisters from adhesive tape. Otherwise, she stabilized post surgery and began to work with Physical and Occupational Therapy and was ready for discharge to inpatient rehabilitation. STUDIES AND LABS DURING HOSPITALIZATION: CBC prior to surgery was overall within normal limits, but for minor increase in absolute neutrophils at 6.69 and relative neutrophils at 76.5%. Her white blood cell count was normal at 8.75. Serum chemistry revealed normal renal function, electrolytes, and liver function tests on 07/26/2016. She had an elevated glucose at 186. Troponin was tested, likely because of her tachycardia, and was not significantly elevated. TSH also was checked and was normal at 1.66. EKG on 07/27/2015 showed atrial flutter and ventricular premature complexes. Chest x-ray on 07/26/2016 verifies position of an internal jugular venous catheter and was otherwise a normal chest x-ray. PRECAUTIONS: She is a fall risk. ACTIVE COMORBIDITIES: There are no active tier 1, tier 2, or tier 3 comorbidities. PAST MEDICAL HISTORY: 1. Degenerative joint disease. 2. Hypothyroidism. 3. Deep venous thrombosis in the right thigh after total knee arthroplasty. PAST SURGICAL HISTORY: She has had bilateral total knee arthroplasties. She has had a section. MEDICATIONS: 1. Levothyroxine 175 mcg p.o. daily. 2. Desvenlafaxine 25 mg p.o. daily. 3. Cholecalciferol 2000 units p.o. daily. 4. Zolpidem 5 mg p.o. at bedtime. 5. Multivitamin 1 p.o. daily. 6. Morphine 15 mg p.o. q.4 hours p.r.n. 7. Artificial Tears 1 drop each eye q.2 hours p.r.n. 8. Tapentadol 50 mg p.o. q.6 hours p.r.n. 9. Senna/docusate 1-2 tabs p.o. b.i.d. 10. Methocarbamol 750 mg p.o. q.i.d. p.r.n. 11. Lidocaine patch daily. 12. Ibuprofen 400 mg p.o. q.8 hours p.r.n. 13. Enoxaparin 40 mg subcutaneous daily. ALLERGIES: Listed to hydrocodone and adhesive tape. FAMILY HISTORY: Noncontributory. 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 She has twin daughters. She lives with her . She is a nonsmoker. She uses occasional alcohol. REVIEW OF SYSTEMS: She has a dry mouth. She has constipation, which was relieved with a suppository today. She had urinary retention and required catheterization today. She has pain, but it is not like she had prior to surgery. It is more incisional. She has tingling on the bottoms of her feet, but this is not significantly uncomfortable. She denies fevers or chills, cough or dyspnea, though she has had hypoxia requiring supplemental oxygen in the hospital. She has had nausea but no vomiting. She has no dysuria and was not aware of urinary retention. She has no joint pain or joint swelling. There are blisters from adhesive tape on her back and on her right neck at the internal jugular catheterization site. She is in good spirits. She has no focal weakness. Otherwise, a 10-point review of systems is negative. PHYSICAL EXAM: VITAL SIGNS: Blood pressure is 163/105, heart rate is 67, respiratory rate is 16, oxygenation is 81% on room air and 98% on 2 L. Temperature is 36.9 degrees centigrade. Her weight is 83.9 kg for a body mass index of 29.9. GENERAL: This is an overweight woman lying in bed, appears her chronologic age, cooperative and in no acute distress. HEENT: Extraocular movements are intact. Pupils are equal, round, and reactive to light and accommodation. Mucous membranes are moist. Dentition is in good condition. NECK: Supple. There is a blister adjacent to the site of internal jugular catheter. HEART: There is a regular rate and rhythm with no murmurs, rubs, or gallops. LUNGS: Clear to auscultation bilaterally. ABDOMEN: Soft, nontender , nondistended, with normoactive bowel sounds. There is no palpable bladder. There is no hepatosplenomegaly. EXTREMITIES: There is no cyanosis, clubbing, or edema. Radial and dorsalis pedis pulses are 2+ bilaterally. NEUROLOGIC: She is alert and oriented x3. Cranial nerves 2-12 are grossly intact. Overall , her strength is 5/5, except her right hamstring is 4/5 and her right hip flexor is 4/5. Sensation overall is intact to light touch but reduced in her lower extremities. Deep tendon reflexes are 2+ bilaterally at the biceps, right patella and bilateral Achilles, and hypoactive at the left patella tendon. SKIN: Blisters from tape as described above, and on her back especially to the left of the incision. Otherwise skin is warm, dry, and intact. IMPRESSION: Mrs. Mason is a 66-year-old woman who had progressive dysfunction with the lower extremities and falls and was eventually diagnosed with a spinal meningioma causing cord compression. She had surgery with excision of the meningioma and laminectomy of T5-T7. She had hospital complications including some mild hypotension after surgery treated with low-dose phenylephrine, atrial flutter, and premature ventricular complexes while she had tachycardia, hypoxia , urinary retention, constipation, and blister reaction to adhesive tape. She has begun to ambulate and recover function and she is appropriate for inpatient rehabilitation. She will benefit from physical and occupational therapy to optimize her mobility and functional status, from nursing care regarding bowel and bladder, skin integrity, healing of blisters, wound healing , fall risk, medication education, and from the rehabilitation physician for pain control, attention to nausea and hypoxia, observation for recurrent tachycardia, medications and adverse effects regarding bowel and bladder, and DVT risk. Her goal is to return home with her family and supportive care. For a safe discharge, it is anticipated that she will achieve independence with grooming, modified independence for bathing, bed mobility, and transfers, ambulation with the least restrictive device, and negotiation of stairs with supervision. She will receive therapy with Physical Therapy and Occupational Therapy for 90 minutes each day on 5-7 days of the week. Her expected duration of stay is 7- 10 days. It is anticipated that after she returns home, she will continue to benefit from Home Health Services including Occupational Therapy and Physical Therapy. ASSESSMENT AND PLAN: 1. Debility status post excision of a thoracic meningioma and T5-T7 laminectomy. Physical therapy occupational therapy to optimize mobility and activities of daily living. She likely is deconditioned as well due to her gradually progressive symptoms prior to diagnosis of the meningioma. 2. Pain management. She prescribed tapentadol because, per she and her daughter, she has had nausea with every other opiate that has been tried. Apparently, she also has been tolerating morphine on a p.r.n. basis. She has been using a low dose of ibuprofen on a p.r.n. basis. I will discontinue the ibuprofen and schedule celecoxib at 200 mg b.i.d., as it is less likely to cause dyspepsia or GI bleed, and continue tapentadol as well as morphine as ordered. She reports that she does not think the lidocaine patch has been helping and I will discontinue it. Additionally, acetaminophen will be available on an as-needed basis. She will be monitored for adequacy of pain control and medications will be adjusted as needed. 3. Tachycardia with atrial flutter and premature ventricular complexes while she was in the hospital. She currently has a regular rhythm and a normal rate. She will be monitored for any recurrence. 4. Hypoxia, of unclear etiology. Opiate respiratory depression may contribute. Will initiate incentive spirometry and observe for improvement. 5. Elevated blood pressure this afternoon. Unclear whether or not there might be uncontrolled pain contributing. However, upon review of her blood pressures in the hospital she often had a systolic above 140 and sometimes as high as 160. Her diastolic was generally not significantly elevated and often she was not hypertensive. Will continue to monitor her blood pressure and consider initiating medication if she is consistently hypertensive. 6. Hypothyroidism. Continue levothyroxine. 7. Urinary retention. Will bladder scan. Will use straight cath p.r.n. postvoid residual greater than 350 mL. Given that the opiates relax the bladder , consideration will be given to starting bethanechol. Additionally, she had been on a scopolamine patch for nausea. This may have contributed to retention , though it has been 4 days since it was initiated and the patch had not been changed, so it is likely that there was very little effect remaining. The scopolamine patch has been removed. 8. Nausea. It is hoped that she will be able to have adequate pain control with reduced opiates with the initiation of celecoxib and with acetaminophen available on an as-needed basis. I have prescribed ondansetron on a p.r.n. basis should she have nausea. 9. Constipation. Will switch from senna/docusate to senna alone as it is more effective. Schedule b.i.d. as well as polyethylene glycol daily. Additionally , bisacodyl suppository will be available on a p.r.n. basis. 10. Insomnia. She comes out of the hospital on a scheduled dose of zolpidem 5 mg at h.s. There will be further discussion regarding whether she had insomnia prior to her hospitalization and whether or not she can be weaned off the zolpidem. 11. Adhesive tape allergy with blistering. She has been seen by the wound care nurse and she will have wound care by Nursing and monitoring for healing. She has no pressure ulcers. /[id number]/MODL MTDD
[2016-07-30] MEDS ORDERED: PROMETHAZINE HCL 25 MG SUPPR PR PRN (18:39)
[2016-07-30] MEDS: SENNOSIDES 1 TAB PO SCH (20:24)
[2016-07-30] MEDS: ZOLPIDEM TARTRATE 5 MG TAB PO SCH (23:15)
[2016-07-31] MEDS: TAPENTADOL HCL 50 MG TAB PO PRN (02:31)
[2016-07-31] MEDS ORDERED: LEVOTHYROXINE 175 MCG TAB PO SCH (06:00)
[2016-07-31] MEDS: LEVOTHYROXINE 75 MCG TAB PO SCH (06:23)
[2016-07-31] MEDS: LEVOTHYROXINE 100 MCG TAB PO SCH (06:23)
[2016-07-31] MEDS: MULTIVITAMINS 1 EACH TAB PO SCH (08:28)
[2016-07-31] MEDS: CHOLECALCIFEROL VIT D3 2,000 UNITS TAB/CAP PO SCH (08:28)
[2016-07-31] MEDS: SENNOSIDES 1 TAB PO SCH ×2 (08:29→20:17)
[2016-07-31] MEDS: ENOXAPARIN 40 MG/0.4 ML SYR SC SCH (08:29)
[2016-07-31] MEDS: POLYETHYLENE GLYCOL 3350 17 GM PKT PO SCH (08:29)
--- NOTE | 2016-07-31 08:56 | SOAPPROG ---
SOAP Progress Note Assessment/Plan: Assessment: 66 yo F with gradually progressive lower extremity weakness and falls, with diagnosis of spinal meningioma and surgical excision with laminectomy on 07/26/16: * Debility status post excision of a thoracic meningioma and T5-T7 laminectomy. Physical therapy occupational therapy to optimize mobility and activities of daily living. She likely is deconditioned as well due to her gradually progressive symptoms prior to diagnosis of the meningioma. * Pain management. Appears to be adequate with PRN tapentadol and morphine, and addition of celecoxib 200 mg BID starting yesterday evening. Hope for reduction in opiate use. 50 mg tapentadol = 20 mg morphine. * Tachycardia with atrial flutter and premature ventricular complexes while she was in the hospital. She currently has a regular rhythm and a normal rate. She will be monitored for any recurrence. * Hypoxia, of unclear etiology. Opiate respiratory depression may contribute. Will initiate incentive spirometry and observe for improvement. Get CBC and CXR today 07/31/16. * Elevated blood pressure intermittently. Continue to monitor. * Hypothyroidism. Continue levothyroxine. * Urinary retention. Schedule toileting. Bladder scan and straight cath p.r.n. postvoid residual greater than 350 mL. Given that the opiates relax the bladder, consideration will be given to starting bethanechol. * Nausea. Unclear etiology other than opiates. Responded to promethazine. * Constipation. Will switch from senna/docusate to senna alone as it is more effective. Schedule b.i.d. as well as polyethylene glycol daily. Additionally , bisacodyl suppository will be available on a p.r.n. basis. * Insomnia. She comes out of the hospital on a scheduled dose of zolpidem 5 mg at h.s. There will be further discussion regarding whether she had insomnia prior to her hospitalization and whether or not she can be weaned off the zolpidem. * Adhesive tape allergy with blistering. She has been seen by the wound care nurse and she will have wound care by Nursing and monitoring for healing. She has no pressure ulcers. 07/31/16 11:21 Subjective: Had emesis X 2 yesterday evening; had ondasetron prior to emesis; no further emesis after promethazine suppository. Slept well, feels much metter this morning. No dyspnea, cough, f/c, dysuria, though still with urinary retention requiring straight cath. Objective: Vital Signs Temp Pulse Resp BP Pulse Ox 36.7 C 63 18 118/69 95 07/31/16 08:00 07/31/16 08:00 07/31/16 08:00 07/31/16 08:00 07/31/16 08:00 07/30/16 07/31/16 08/01/16 05:59 05:59 05:59 Output Total 2049 Balance -2049 Physical Exam - Physical Exam General Appearance: WD/WN, alert, no apparent distress Respiratory: normal breath sounds, No crackles, No rhonchi, No wheezing Cardiac/Chest: regular rate, rhythm, No edema Skin: normal color, warm/dry Extremities: No calf tenderness Neuro/Psych: alert, normal mood/affect, oriented x 3 ICD10 Worksheet Patient Problems: Problems Problem Status Diagnosed Back pain Acute
[2016-07-31] MEDS ORDERED: PROMETHAZINE HCL 25 MG TAB PO PRN (08:57)
[2016-07-31] MEDS ORDERED: DESVENLAFAXINE SUCCINATE 25 MG PO SCH (09:00)
[2016-07-31] MEDS: Desvenlafaxine Succinate [Pristiq] 25 MG PO SCH (09:19)
--- NOTE | 2016-07-31 14:18 | DX ---
Chest, PA and Lateral History: Hypoxia, postop spinal cord tumor Comparison: Portable exam July 26 Findings: A right external jugular venous catheter has been removed and there is no pneumothorax. Wilson gs are clear, without infiltrate. A band density in the retrocardiac chest may represent a thin plate of atelectasis or scar. The heart is mildly enlarged. The ascending aorta is prominent raising the p ossibility of valvular disease or aneurysm. The pulmonary vascularity is normal. There is no adenopat hy or mass lesion. Minimal posterior costophrenic gutter blunting may represent tiny effusions. Bones are unremarkable for age. Impression: 1. Cardiomegaly without pulmonary vascular congestion. 2. Small posterior pleural effusions, possibly indicating recent fluid overloading that has resolved. 3. Prominent ascending aorta. Consider CT to exclude aneurysm. Recommend auscultation and/or echocard iography to evaluate for aortic valvular disease.
[2016-07-31 16:35] LABS: % IMMATURE GRANULYOCYTES 0.3 % (0.0-1.1); ABSOLUTE IMMATURE GRANULOCYTES 0.02 10^3/uL (0.00-0.10); ADD DIFF? NO; ADD MORPH? NO; ADD SCAN? NO; ATYPICAL LYMPHOCYTE FLAG 0 (0-99); FRAGMENT RBC FLAG 0 (0-99); HEMATOCRIT 33.5 % (38.0-47.0); HEMOGLOBIN 11.5 g/dL (12.6-16.3); LEFT SHIFT FLG 20 (0-99); LIPEMIA HEMOLYSIS FLAG 90 (0-99); MEAN CELL HEMOGLOBIN 30.7 pg (27.9-34.1); MEAN CELL HEMOGLOBIN CONCENTR. 34.3 g/dL (32.4-36.7); MEAN CELL VOLUME 89.3 fL (81.5-99.8); MEAN PLATELET VOLUME 10.8 fL (8.7-11.7); PLATELET CLUMPS FLAG 0 (0-99); PLATELET COUNT 315 10^3/uL (150-400); RED BLOOD CELL COUNT 3.75 10^6/uL (4.18-5.33); RED CELL DISTRIBUTION WIDTH 12.1 % (11.5-15.2)
[2016-07-31 18:02] LABS: HEMATOCRIT 33.3 % (38.0-47.0)
[2016-07-31] MEDS: ACETAMINOPHEN 325 MG TAB PO PRN (18:09)
[2016-07-31] MEDS: ZOLPIDEM TARTRATE 5 MG TAB PO SCH (21:28)
[2016-08-01] MEDS: ONDANSETRON DISINTEGRATING 4 MG TAB PO PRN ×2 (02:18→20:27)
[2016-08-01] MEDS: ACETAMINOPHEN 325 MG TAB PO PRN ×3 (02:18→16:57)
[2016-08-01] MEDS: LEVOTHYROXINE 100 MCG TAB PO SCH (06:25)
[2016-08-01] MEDS: LEVOTHYROXINE 75 MCG TAB PO SCH (06:25)
[2016-08-01] MEDS: CHOLECALCIFEROL VIT D3 2,000 UNITS TAB/CAP PO SCH (08:43)
[2016-08-01] MEDS: POLYETHYLENE GLYCOL 3350 17 GM PKT PO SCH (08:43)
[2016-08-01] MEDS: SENNOSIDES 1 TAB PO SCH ×2 (08:43→20:27)
[2016-08-01] MEDS: MULTIVITAMINS 1 EACH TAB PO SCH (08:43)
[2016-08-01] MEDS: ENOXAPARIN 40 MG/0.4 ML SYR SC SCH (08:43)
[2016-08-01] MEDS: Desvenlafaxine Succinate [Pristiq] 25 MG PO SCH (08:47)
[2016-08-01] MEDS ORDERED: MAGNESIUM HYDROXIDE 30 ML UDCUP PO PRN (10:14)
--- NOTE | 2016-08-01 11:10 | SOAPPROG ---
SOAP Progress Note Assessment/Plan: Assessment: 66 yo F with gradually progressive lower extremity weakness and falls, with diagnosis of spinal meningioma and surgical excision with laminectomy on 07/26/16: * Debility status post excision of a thoracic meningioma and T5-T7 laminectomy. Physical therapy occupational therapy to optimize mobility and activities of daily living. She likely is deconditioned as well due to her gradually progressive symptoms prior to diagnosis of the meningioma. * Pain management. Appears to be adequate with PRN tapentadol and morphine, and addition of celecoxib 200 mg BID starting yesterday evening. Hope for reduction in opiate use. 50 mg tapentadol = 20 mg morphine. * Tachycardia with atrial flutter and premature ventricular complexes while she was in the hospital. She currently has a regular rhythm and a normal rate. She will be monitored for any recurrence. * Hypoxia, of unclear etiology. Opiate respiratory depression may contribute. Will initiate incentive spirometry and observe for improvement. CHF? May have been fluid-overloaded for hypotension in the acute hospital, has LE edema, and CXR shows cardiomegaly; however no JVD, no PND, no pulmonary congestion on CXR. Anemia contributes. Trial of furosemide to 08/01/16 and tomorrow. Continue to monitor. * Elevated blood pressure intermittently. Continue to monitor. * Hypothyroidism. Continue levothyroxine. * Urinary retention. Schedule toileting. Bladder scan and straight cath p.r.n. postvoid residual greater than 350 mL. Resolved. * Nausea. Unclear etiology other than opiates. Responded to promethazine. * Constipation. Will switch from senna/docusate to senna alone as it is more effective. Schedule b.i.d. as well as polyethylene glycol daily. Additionally , bisacodyl suppository will be available on a p.r.n. basis. Added MOM today 08/01/16 per her request. * Insomnia. She comes out of the hospital on a scheduled dose of zolpidem 5 mg at h.s. There will be further discussion regarding whether she had insomnia prior to her hospitalization and whether or not she can be weaned off the zolpidem. Abstained last night 07/31/16 and did not sleep well. * Adhesive tape allergy with blistering. She has been seen by the wound care nurse and she will have wound care by Nursing and monitoring for healing. She has no pressure ulcers. 08/01/16 11:06 Subjective: Interrupted sleep last night; slept well prior 2 night. Not awakened by breathing issues. Using O2 2L overnight; none this morning. No dyspnea or cough. Has constipation X 2 days. Voiding well. Objective: Vital Signs Temp Pulse Resp BP Pulse Ox 36.8 C 64 16 120/78 93 08/01/16 06:39 08/01/16 06:39 08/01/16 06:39 08/01/16 06:39 08/01/16 06:39 Laboratory Results 07/31/16 14:35 07/31/16 08/01/16 08/02/16 05:59 05:59 05:59 Intake Total 600 460 Output Total 2049 2249 750 Balance -2049 Physical Exam - Physical Exam General Appearance: WD/WN, alert, no apparent distress Respiratory: normal breath sounds, No crackles, No rhonchi, No wheezing Cardiac/Chest: regular rate, rhythm, edema (1 - 2 + B LE), No JVD Neuro/Psych: alert, normal mood/affect, oriented x 3 ICD10 Worksheet Patient Problems: Problems Problem Status Diagnosed Back pain Acute
[2016-08-01] MEDS: FUROSEMIDE 20 MG TAB PO SCH (11:18)
[2016-08-01] MEDS: TAPENTADOL HCL 50 MG TAB PO PRN (20:27)
[2016-08-01] MEDS: ZOLPIDEM TARTRATE 5 MG TAB PO PRN (21:35)
[2016-08-02] MEDS: ACETAMINOPHEN 325 MG TAB PO PRN ×4 (01:53→22:03)
[2016-08-02] MEDS: LEVOTHYROXINE 75 MCG TAB PO SCH (06:26)
[2016-08-02] MEDS: LEVOTHYROXINE 100 MCG TAB PO SCH (06:26)
[2016-08-02] MEDS: POLYETHYLENE GLYCOL 3350 17 GM PKT PO SCH (09:06)
[2016-08-02] MEDS: SENNOSIDES 1 TAB PO SCH ×2 (09:06→20:08)
[2016-08-02] MEDS: MULTIVITAMINS 1 EACH TAB PO SCH (09:06)
[2016-08-02] MEDS: CHOLECALCIFEROL VIT D3 2,000 UNITS TAB/CAP PO SCH (09:06)
[2016-08-02] MEDS: ENOXAPARIN 40 MG/0.4 ML SYR SC SCH (09:06)
[2016-08-02] MEDS: FUROSEMIDE 20 MG TAB PO SCH (09:06)
[2016-08-02] MEDS: Desvenlafaxine Succinate [Pristiq] 25 MG PO SCH (09:07)
--- NOTE | 2016-08-02 11:59 | SOAPPROG ---
SOAP Progress Note Assessment/Plan: Assessment: 66 yo F with gradually progressive lower extremity weakness and falls, with diagnosis of spinal meningioma and surgical excision with laminectomy on 07/26/16: * Debility status post excision of a thoracic meningioma and T5-T7 laminectomy. Initial FIM 97. Decreased proprioception and hyperextension of R knee with ambulation due to chronic compensation s/p TKA and with progressive dysfn due to spinal meningioma. ADLs at supervision level except CGA for shower t'coy. Orthotics consult re brace to reduce R knee hyperextension. Continue PT & OT to optimize mobility and activities of daily living. * Pain management. Appears to be adequate with celecoxib 200 mg BID and PRN acetaminophen. * Tachycardia with atrial flutter and premature ventricular complexes while she was in the hospital. She currently has a regular rhythm and a normal rate. She will be monitored for any recurrence. * Hypoxia, due to fluid overload and anemia. Improved after diuresis with furosemide for 2 days; will d/c furosemide.incentive spirometry and observe for improvement. * Anemia, post-surgical, with normal MCV but somewhat low reticulocytosis. Recheck H&H 08/07/16. * Elevated blood pressure intermittently. Continue to monitor. * Hypothyroidism. Continue levothyroxine. * Urinary retention. Resolved, may have been due to opiate effect on bladder. * Nausea. Unclear etiology other than opiates. Responded to promethazine. * Constipation. Will switch from senna/docusate to senna alone as it is more effective. Schedule b.i.d. as well as polyethylene glycol daily. Additionally , bisacodyl suppository will be available on a p.r.n. basis. * Insomnia. She comes out of the hospital on a scheduled dose of zolpidem 5 mg at h.s. * Adhesive tape allergy with blistering. She has been seen by the wound care nurse and she will have wound care by Nursing and monitoring for healing. She has no pressure ulcers. Attended staffing, 15 min. D/W case mgmt, nursing, PT, OT. Main barrier is abnormal gait with chronic compensation for weakness due to spinal tumor as well as B TKAs. Tentative discharge 08/13/16 but might be able to go home sooner. Good family support. 08/02/16 11:51 Subjective: No complaints. Slept well and did not need O2. Minimal pain, controlled with PRN APAP. Objective: Vital Signs Temp Pulse Resp BP Pulse Ox 36.9 C 65 17 131/78 H 94 08/02/16 06:49 08/02/16 06:49 08/02/16 06:49 08/02/16 06:49 08/02/16 06:49 Laboratory Results 07/31/16 14:35 08/01/16 08/02/16 08/03/16 05:59 05:59 05:59 Intake Total 600 1096 420 Output Total 2250 951 Balance -1650 145 420 - Time Spent With Patient Time Spent With Patient: Greater than 35 minutes floor time today, including more than 50% of time incoordination of care during staffing meeting, and counseling patient. Physical Exam - Physical Exam General Appearance: WD/WN, alert, no apparent distress Respiratory: No respiratory distress, No accessory muscle use Cardiac/Chest: edema (1+ B LE), No JVD Skin: normal color, warm/dry, other (Discontinued dressing over R IJ catheter site; healing with minimal eschar, no drainage or erythema.) Neuro/Psych: alert, normal mood/affect, oriented x 3 ICD10 Worksheet Patient Problems: Problems Problem Status Diagnosed Back pain Acute
[2016-08-02] MEDS: TAPENTADOL HCL 50 MG TAB PO PRN (20:07)
[2016-08-02] MEDS: ONDANSETRON DISINTEGRATING 4 MG TAB PO PRN (20:10)
[2016-08-02] MEDS: ZOLPIDEM TARTRATE 5 MG TAB PO PRN (22:01)
[2016-08-03] MEDS: LEVOTHYROXINE 75 MCG TAB PO SCH (06:16)
[2016-08-03] MEDS: LEVOTHYROXINE 100 MCG TAB PO SCH (06:16)
[2016-08-03] MEDS: POLYETHYLENE GLYCOL 3350 17 GM PKT PO SCH (08:51)
[2016-08-03] MEDS: SENNOSIDES 1 TAB PO SCH ×2 (08:52→21:27)
[2016-08-03] MEDS: MULTIVITAMINS 1 EACH TAB PO SCH (08:52)
[2016-08-03] MEDS: CHOLECALCIFEROL VIT D3 2,000 UNITS TAB/CAP PO SCH (08:52)
[2016-08-03] MEDS: Desvenlafaxine Succinate [Pristiq] 25 MG PO SCH (08:58)
[2016-08-03] MEDS: ENOXAPARIN 40 MG/0.4 ML SYR SC SCH (09:03)
[2016-08-03] MEDS: ONDANSETRON DISINTEGRATING 4 MG TAB PO PRN (10:16)
--- NOTE | 2016-08-03 10:58 | SOAPPROG ---
SOAP Progress Note Assessment/Plan: Assessment: 66 yo F with gradually progressive lower extremity weakness and falls, with diagnosis of spinal meningioma and surgical excision with laminectomy on 07/26/16: * Debility status post excision of a thoracic meningioma and T5-T7 laminectomy. Initial FIM 97. Decreased proprioception and hyperextension of R knee with ambulation due to chronic compensation s/p TKA and with progressive dysfn due to spinal meningioma. ADLs at supervision level except CGA for shower t'coy. Orthotics consult re brace to reduce R knee hyperextension. Continue PT & OT to optimize mobility and activities of daily living. * Right knee hyperextension- instructed patienton bedside quad setting, glut sets and hamstring strengthening. * Pain management. Appears to be adequate with celecoxib 200 mg BID and PRN acetaminophen. * Tachycardia with atrial flutter and premature ventricular complexes while she was in the hospital. She currently has a regular rhythm and a normal rate. She will be monitored for any recurrence. * Hypoxia, due to fluid overload and anemia. Improved and asymptomatic at this time. * Anemia, post-surgical, with normal MCV but somewhat low reticulocytosis. Recheck H&H 08/07/16. * Elevated blood pressure intermittently. Continue to monitor. * Hypothyroidism. Continue levothyroxine. * Urinary retention. Resolved, may have been due to opiate effect on bladder. * Nausea. Unclear etiology other than opiates. Responded to promethazine. Had another episode this am and given SL. * Constipation. Will switch from senna/docusate to senna alone as it is more effective. Schedule b.i.d. as well as polyethylene glycol daily. Additionally , bisacodyl suppository will be available on a p.r.n. basis. * Insomnia. She comes out of the hospital on a scheduled dose of zolpidem 5 mg at h.s. * Adhesive tape allergy with blistering. She has been seen by the wound care nurse and she will have wound care by Nursing and monitoring for healing. She has no pressure ulcers. Plan: 08/03/16 10:54 Subjective: C/O nausea this am. No c/o dizziness, BECERRA or visual disturbance. Objective: Vital Signs Temp Pulse Resp BP Pulse Ox 36.8 C 71 16 138/85 H 95 08/03/16 06:39 08/03/16 06:39 08/03/16 06:39 08/03/16 06:39 08/03/16 06:39 Laboratory Results 07/31/16 14:35 08/02/16 08/03/16 08/04/16 05:59 05:59 05:59 Intake Total 1096 1300 1410 Output Total 951 1125 Balance 862 652 2519 Physical Exam - Physical Exam General Appearance: WD/WN, alert, no apparent distress EENT: PERRL/EOMI Neck: full range of motion Respiratory: lungs clear, normal breath sounds Cardiac/Chest: No JVD Abdomen: normal bowel sounds, non-tender, soft Skin: normal color, warm/dry Neuro/Psych: normal mood/affect, oriented x 3, abnormal gait, motor weakness ( Gait eval- decreased step and stride length. Decreased proprioception with lunges and decreased right quadriceps, HS and glut strength ), No speech abnormalities ICD10 Worksheet Patient Problems: Problems Problem Status Diagnosed Back pain Acute
[2016-08-03] MEDS: ACETAMINOPHEN 325 MG TAB PO PRN (17:45)
[2016-08-03] MEDS: TAPENTADOL HCL 50 MG TAB PO PRN (21:27)
[2016-08-03] MEDS: ZOLPIDEM TARTRATE 5 MG TAB PO PRN (22:07)
[2016-08-04] MEDS: LEVOTHYROXINE 75 MCG TAB PO SCH (06:05)
[2016-08-04] MEDS: LEVOTHYROXINE 100 MCG TAB PO SCH (06:05)
[2016-08-04] MEDS: Desvenlafaxine Succinate [Pristiq] 25 MG PO SCH (08:25)
[2016-08-04] MEDS: MULTIVITAMINS 1 EACH TAB PO SCH (08:25)
[2016-08-04] MEDS: CHOLECALCIFEROL VIT D3 2,000 UNITS TAB/CAP PO SCH (08:25)
[2016-08-04] MEDS: ENOXAPARIN 40 MG/0.4 ML SYR SC SCH (08:41)
[2016-08-04] MEDS: SENNOSIDES 1 TAB PO SCH (08:46)
[2016-08-04] MEDS: POLYETHYLENE GLYCOL 3350 17 GM PKT PO SCH (08:46)
--- NOTE | 2016-08-04 10:53 | SOAPPROG ---
SOAP Progress Note Assessment/Plan: Assessment: 66 yo F with gradually progressive lower extremity weakness and falls, with diagnosis of spinal meningioma and surgical excision with laminectomy on 07/26/16: * Debility status post excision of a thoracic meningioma and T5-T7 laminectomy. Initial FIM 97. Decreased proprioception and hyperextension of R knee with ambulation due to chronic compensation s/p TKA and with progressive dysfn due to spinal meningioma. ADLs at supervision level except CGA for shower t'coy. Orthotics consult re brace to reduce R knee hyperextension. Continue PT & OT to optimize mobility and activities of daily living. * Right knee hyperextension- instructed patient on bedside quad setting, glut sets and hamstring strengthening. * Pain management. Appears to be adequate with celecoxib 200 mg BID and PRN acetaminophen. * Tachycardia with atrial flutter and premature ventricular complexes while she was in the hospital. She currently has a regular rhythm and a normal rate. She will be monitored for any recurrence. * Hypoxia, due to fluid overload and anemia. Improved and asymptomatic at this time. She is off 02 per [place] * Anemia, post-surgical, with normal MCV but somewhat low reticulocytosis. Recheck H&H 08/07/16. * Elevated blood pressure intermittently. Continue to monitor. * Hypothyroidism. Continue levothyroxine. * Urinary retention. Resolved, may have been due to opiate effect on bladder. * Nausea. Unclear etiology other than opiates. Responded to promethazine. Had another episode this am and given SL. Have ordered Maloox for mild dyspepsia * Constipation. Will switch from senna/docusate to senna alone as it is more effective. Schedule b.i.d. as well as polyethylene glycol daily. Additionally , bisacodyl suppository will be available on a p.r.n. basis. * Insomnia. She comes out of the hospital on a scheduled dose of zolpidem 5 mg at h.s. * Adhesive tape allergy with blistering. She has been seen by the wound care nurse and she will have wound care by Nursing and monitoring for healing. She has no pressure ulcers. Plan: 08/03/16 10:54 08/04/16 10:53 Subjective: No c/o of right or left knee pain. Continues to report some quad weakness. Objective: Vital Signs Temp Pulse Resp BP Pulse Ox 36.9 C 73 15 136/86 H 94 08/04/16 06:22 08/04/16 06:22 08/04/16 06:22 08/04/16 06:22 08/04/16 06:22 Laboratory Results 07/31/16 14:35 08/03/16 08/04/16 08/05/16 05:59 05:59 05:59 Intake Total 1300 1760 1260 Output Total 1125 600 Balance 175 1160 1260 Physical Exam - Physical Exam General Appearance: WD/WN, alert, no apparent distress Respiratory: lungs clear, normal breath sounds Cardiac/Chest: No edema, No JVD Abdomen: normal bowel sounds, non-tender, soft, No rebound Skin: normal color, warm/dry Extremities: other (right and left knee extension to zero, flexion 105-110 ), No swelling, No Nicole's sign Neuro/Psych: No motor weakness (5/5 right and left quad and HS strength) ICD10 Worksheet Patient Problems: Problems Problem Status Diagnosed Back pain Acute
[2016-08-04] MEDS ORDERED: MAG HYDROX/AL HYDROX/SIMETH 30 ML UDCUP PO PRN (11:14)
[2016-08-04] MEDS: ACETAMINOPHEN 325 MG TAB PO PRN (13:30)
[2016-08-04] MEDS: TAPENTADOL HCL 50 MG TAB PO PRN (21:22)
[2016-08-04] MEDS: ZOLPIDEM TARTRATE 5 MG TAB PO PRN (22:13)
[2016-08-05] MEDS: SENNOSIDES 1 TAB PO SCH ×3 (05:18→23:42)
[2016-08-05] MEDS: LEVOTHYROXINE 100 MCG TAB PO SCH (06:11)
[2016-08-05] MEDS: LEVOTHYROXINE 75 MCG TAB PO SCH (06:11)
[2016-08-05] MEDS: Desvenlafaxine Succinate [Pristiq] 25 MG PO SCH (07:59)
[2016-08-05] MEDS: CHOLECALCIFEROL VIT D3 2,000 UNITS TAB/CAP PO SCH (07:59)
[2016-08-05] MEDS: ENOXAPARIN 40 MG/0.4 ML SYR SC SCH (08:00)
[2016-08-05] MEDS: MULTIVITAMINS 1 EACH TAB PO SCH (08:01)
[2016-08-05] MEDS: POLYETHYLENE GLYCOL 3350 17 GM PKT PO SCH (08:01)
[2016-08-05] MEDS: ACETAMINOPHEN 325 MG TAB PO PRN ×3 (09:04→18:06)
--- NOTE | 2016-08-05 13:58 | SOAPPROG ---
SOAP Progress Note Assessment/Plan: A/P 66 yo F with gradually progressive lower extremity weakness and falls, with diagnosis of spinal meningioma and surgical excision with laminectomy on 07/26/16 : Doing well overall, minimal changes to medical plan today (pain control and orthotics choice). All medical issues are new to this provider. * Debility status post excision of a thoracic meningioma and T5-T7 laminectomy. Initial FIM 97. Decreased proprioception and hyperextension of R knee with ambulation due to chronic compensation s/p TKA and with progressive dysfn due to spinal meningioma. ADLs at supervision level except CGA for shower t'coy. Orthotics consult re brace to reduce R knee hyperextension. Continue PT & OT to optimize mobility and activities of daily living. * Right knee hyperextension- pt instructed on bedside quad setting, glut sets and hamstring strengthening, knee brace to control hyperextension. Discussed personally with wash worker about knee brace vs solid AFO for knee control, elected to continue with knee bracing in isolated knee hyperextension. Consider AFO if not sufficiently controlled. * Pain management. Appears to be adequate with celecoxib 200 mg BID and PRN acetaminophen (increased to 650 mg Q4 prn). * Tachycardia with atrial flutter and premature ventricular complexes while she was in the hospital. She currently has a regular rhythm and a normal rate. She will be monitored for any recurrence. * Hypoxia, due to fluid overload and anemia. Improved and asymptomatic at this time. She is off 02 per [place] * Anemia, post-surgical, with normal MCV but somewhat low reticulocytosis. Recheck H&H 08/07/16. * Elevated blood pressure intermittently. Continue to monitor. * Hypothyroidism. Continue levothyroxine. * Urinary retention. Resolved, may have been due to opiate effect on bladder. * Nausea. Unclear etiology other than opiates. Responded to promethazine. Had another episode this am and given SL. Maloox for mild dyspepsia * Constipation. senna. Schedule b.i.d. as well as polyethylene glycol daily. Additionally, bisacodyl suppository will be available on a p.r.n. basis. * Insomnia. She comes out of the hospital on a scheduled dose of zolpidem 5 mg at h.s. No changes for now. * Adhesive tape allergy with blistering. She has been seen by the wound care nurse and she will have wound care by Nursing and monitoring for healing. She has no pressure ulcers. Subjective: CC: knee hyperextension, pain control, skin care No acute events overnight. Pt has knee hyperextension with therapies, mild pain. New since tumor removal. Has not had a brace previously. Knee brace was ordered, consideration given to solid AFO with wash worker, elected to stay with knee brace for now. Pain control is good with tylenol, but needs shorter dosing interval. Requested eval of area where she had a reaction to tape on her lumbar spine. She notes no pain there. Family not at bedside to discuss, but she has good support. Objective: Vital Signs Temp Pulse Resp BP Pulse Ox 37.1 C 77 18 136/98 H 99 08/05/16 06:11 08/05/16 06:11 08/05/16 06:11 08/05/16 06:11 08/05/16 06:11 Laboratory Results 07/31/16 14:35 08/04/16 08/05/16 08/06/16 05:59 05:59 05:59 Intake Total 1760 2140 Output Total 600 500 Balance 1160 1640 - Pending Discharge Pending Discharge Within 24 Hours: No Pending Discharge Within 48 Hours: No Physical Exam - Physical Exam General Appearance: alert, no apparent distress EENT: No scleral icterus (R), No scleral icterus (L) Respiratory: lungs clear, normal breath sounds, No respiratory distress Cardiac/Chest: regular rate, rhythm, No edema Abdomen: normal bowel sounds, soft Back: Other (Healing wounds on lumbar spine from tape reaction (per her report) , no bleeding or discharge, no redness. Eschar. ) Skin: normal color, warm/dry, other (as under back exam) Extremities: No pedal edema, No swelling Neuro/Psych: other (5/5 FF, KE, and ADF) ICD10 Worksheet Patient Problems: Problems Problem Status Diagnosed Back pain Acute
[2016-08-05] MEDS: TAPENTADOL HCL 50 MG TAB PO PRN (21:17)
[2016-08-05] MEDS: ZOLPIDEM TARTRATE 5 MG TAB PO PRN (22:10)
[2016-08-06] MEDS: Desvenlafaxine Succinate [Pristiq] 25 MG PO SCH (07:32)
[2016-08-06] MEDS: ENOXAPARIN 40 MG/0.4 ML SYR SC SCH (07:32)
[2016-08-06] MEDS: CHOLECALCIFEROL VIT D3 2,000 UNITS TAB/CAP PO SCH (07:32)
[2016-08-06] MEDS: MULTIVITAMINS 1 EACH TAB PO SCH (07:32)
[2016-08-06] MEDS: LEVOTHYROXINE 100 MCG TAB PO SCH (07:33)
[2016-08-06] MEDS: ACETAMINOPHEN 325 MG TAB PO PRN ×3 (07:40→17:43)
[2016-08-06] MEDS: LEVOTHYROXINE 75 MCG TAB PO SCH (07:41)
[2016-08-06] MEDS: SENNOSIDES 1 TAB PO SCH ×2 (07:51→21:29)
[2016-08-06] MEDS: POLYETHYLENE GLYCOL 3350 17 GM PKT PO SCH (07:51)
--- NOTE | 2016-08-06 11:37 | SOAPPROG ---
SOAP Progress Note Assessment/Plan: A/P 66 yo F with gradually progressive lower extremity weakness and falls, with diagnosis of spinal meningioma and surgical excision with laminectomy on 07/26/16 : 08/06/2016 doing well, RRR on exam, will continue to monitor. Brace pending, neurologically improving. * Debility status post excision of a thoracic meningioma and T5-T7 laminectomy. Initial FIM 97. Decreased proprioception and hyperextension of R knee with ambulation due to chronic compensation s/p TKA and with progressive dysfn due to spinal meningioma. ADLs at supervision level except CGA for shower t'coy. Orthotics consult re brace to reduce R knee hyperextension. Continue PT & OT to optimize mobility and activities of daily living. * Right knee hyperextension- pt instructed on bedside quad setting, glut sets and hamstring strengthening, knee brace to control hyperextension. Discussed personally with email production specialist about knee brace vs solid AFO for knee control, elected to continue with knee bracing in isolated knee hyperextension. Consider AFO if not sufficiently controlled. * Pain management. Appears to be adequate with celecoxib 200 mg BID and PRN acetaminophen ( 650 mg Q4 prn). * Tachycardia with atrial flutter and premature ventricular complexes while she was in the hospital. Nursing appreciated irreg irreg rhythm on 08/06/2016, but was RRR on physician exam. Continue to monitor, may need holter on dc. * Hypoxia, due to fluid overload and anemia. Improved and asymptomatic at this time. She is off 02 per [place] * Anemia, post-surgical, with normal MCV but somewhat low reticulocytosis. Recheck H&H 08/07/16. * Elevated blood pressure intermittently. Continue to monitor. * Hypothyroidism. Continue levothyroxine. * Urinary retention. Resolved, may have been due to opiate effect on bladder. * Nausea. Unclear etiology other than opiates. Responded to promethazine. Had another episode this am and given SL. Maloox for mild dyspepsia * Constipation. senna. Schedule b.i.d. as well as polyethylene glycol daily. Additionally, bisacodyl suppository will be available on a p.r.n. basis. * Insomnia. She comes out of the hospital on a scheduled dose of zolpidem 5 mg at h.s. No changes for now. * Adhesive tape allergy with blistering. She has been seen by the wound care nurse and she will have wound care by Nursing and monitoring for healing. She has no pressure ulcers. 08/06/16 11:34 Subjective: CC: Neurological stability No acute events overnight. she endorses that therapy is going well. Denies pain , difficulty sleeping, palpitations, CP, dyspnea, or new weakness/motor changes. Sensation is improving in legs, "tingly" now but not painful. Nursing noted that she was irreg irreg on cardiac exam. Brace pending for R knee hyperextension. Objective: Vital Signs Temp Pulse Resp BP Pulse Ox 36.8 C 77 18 146/90 H 95 08/06/16 07:04 08/06/16 07:04 08/06/16 07:04 08/06/16 07:04 08/06/16 07:04 Laboratory Results 07/31/16 14:35 08/05/16 08/06/16 08/07/16 05:59 05:59 05:59 Intake Total 2140 1000 720 Output Total 500 Balance 1640 1000 720 Physical Exam - Physical Exam General Appearance: alert, no apparent distress EENT: No scleral icterus (R), No scleral icterus (L) Respiratory: lungs clear, normal breath sounds, No respiratory distress, No accessory muscle use, No rales, No rhonchi Cardiac/Chest: normal peripheral pulses, regular rate, rhythm, No edema, No irregularly irregular Abdomen: normal bowel sounds, non-tender, soft Skin: normal color, warm/dry Neuro/Psych: alert, other (decreased sens in legs bilat, 5/5 ADF bilat) ICD10 Worksheet Patient Problems: Problems Problem Status Onset Back pain Acute
[2016-08-06] MEDS: TAPENTADOL HCL 50 MG TAB PO PRN (21:27)
[2016-08-06] MEDS: ZOLPIDEM TARTRATE 5 MG TAB PO PRN (22:00)
[2016-08-07] MEDS: LEVOTHYROXINE 100 MCG TAB PO SCH (05:55)
[2016-08-07] MEDS: ACETAMINOPHEN 325 MG TAB PO PRN ×2 (05:55→12:58)
[2016-08-07] MEDS: LEVOTHYROXINE 75 MCG TAB PO SCH (05:55)
[2016-08-07 06:15] VITALS: RESP 16
[2016-08-07] MEDS: SENNOSIDES 1 TAB PO SCH ×2 (08:37→21:31)
[2016-08-07] MEDS: CHOLECALCIFEROL VIT D3 2,000 UNITS TAB/CAP PO SCH (08:37)
[2016-08-07] MEDS: POLYETHYLENE GLYCOL 3350 17 GM PKT PO SCH (08:37)
[2016-08-07] MEDS: MULTIVITAMINS 1 EACH TAB PO SCH (08:37)
[2016-08-07] MEDS: ENOXAPARIN 40 MG/0.4 ML SYR SC SCH (08:37)
[2016-08-07] MEDS: Desvenlafaxine Succinate [Pristiq] 25 MG PO SCH (08:38)
[2016-08-07 09:06] LABS: HEMATOCRIT 37.4 % (38.0-47.0); HEMOGLOBIN 12.5 g/dL (12.6-16.3)
--- NOTE | 2016-08-07 09:55 | SOAPPROG ---
SOAP Progress Note Assessment/Plan: Assessment: 66 yo F with gradually progressive lower extremity weakness and falls, with diagnosis of spinal meningioma and surgical excision with laminectomy on 07/26/16: * Debility status post excision of a thoracic meningioma and T5-T7 laminectomy. Initial FIM 97 on 08/02/16; gain to 105 as of 08/07/16. Decreased proprioception and hyperextension of R knee improving. Awaiting knee brace. Advancing to I in room today 08/07/16. Continue PT & OT to optimize mobility and activities of daily living. * Pain management. Continue PRN acetaminophen and tapendatol.. * Tachycardia with atrial flutter and premature ventricular complexes while she was in the hospital. She currently has a regular rhythm and a normal rate. She will be monitored for any recurrence. * Hypoxia, due to fluid overload and anemia. Improved after diuresis with furosemide for 2 days; will d/c furosemide. Continue incentive spirometry and observe for improvement. Advise PCP or cardiology follow-up after discharge. * Anemia, post-surgical, with normal MCV but somewhat low reticulocytosis. Improving H&H 08/07/16 at . * Elevated blood pressure intermittently. Continue to monitor. Exacerbated by NSAID? D/C celecoxib 08/07/16. May also contribute to edema. * Hypothyroidism. Continue levothyroxine. * Urinary retention. Resolved, may have been due to opiate effect on bladder. * Nausea. Unclear etiology other than opiates. Responded to promethazine. * Constipation. Will switch from senna/docusate to senna alone as it is more effective. Schedule b.i.d. as well as polyethylene glycol daily. Additionally , bisacodyl suppository will be available on a p.r.n. basis. * Insomnia. She comes out of the hospital on a scheduled dose of zolpidem 5 mg at h.s. * Adhesive tape allergy with blistering. She has been seen by the wound care nurse and she will have wound care by Nursing and monitoring for healing. She has no pressure ulcers. Attended staffing, 15 min. D/W case mgmt, nursing, PT, OT. Attended family conference, 30 min, patient and daughter present. Discussed spinal precautions , fall risk, cardiorespiratory issues. Plan for discharge 08/09/16. Outpaitent PT. Return to work and driving per follow-up with Neurosurgery Dr. Hayden, 08/14? 08/07/16 12:12 Subjective: No complaints. Sleeping well. Minimal pain, controlled with acetaminophen or ibuprofen; wants to know if she should take on or the other. Has swelling in legs. No dyspnea/cough. Objective: Vital Signs Temp Pulse Resp BP Pulse Ox 36.5 C 75 16 146/86 H 97 08/07/16 06:14 08/07/16 06:14 08/07/16 06:14 08/07/16 06:14 08/07/16 06:14 Laboratory Results 08/07/16 06:25 08/06/16 08/07/16 08/08/16 05:59 05:59 05:59 Intake Total 1000 2660 Output Total 400 Balance 1000 2260 - Time Spent With Patient Time Spent With Patient: Greater than 35 minutes floor time today, including ore than 50% of time in coordination of care and counseling during staffing and family meetings. Physical Exam - Physical Exam General Appearance: WD/WN, alert, no apparent distress Respiratory: normal breath sounds, No crackles, No rhonchi, No wheezing Cardiac/Chest: regular rate, rhythm, edema (1 - 2 + B LE) Skin: normal color, warm/dry Neuro/Psych: alert, normal mood/affect, oriented x 3 ICD10 Worksheet Patient Problems: Problems Problem Status Onset Back pain Acute
[2016-08-07] MEDS: TAPENTADOL HCL 50 MG TAB PO PRN (21:31)
[2016-08-07] MEDS: ZOLPIDEM TARTRATE 5 MG TAB PO PRN (21:59)
[2016-08-08] MEDS: LEVOTHYROXINE 75 MCG TAB PO SCH (06:17)
[2016-08-08] MEDS: LEVOTHYROXINE 100 MCG TAB PO SCH (06:17)
[2016-08-08] MEDS: ACETAMINOPHEN 325 MG TAB PO PRN ×3 (06:19→17:48)
[2016-08-08] MEDS: POLYETHYLENE GLYCOL 3350 17 GM PKT PO SCH (09:45)
[2016-08-08] MEDS: ENOXAPARIN 40 MG/0.4 ML SYR SC SCH (09:46)
[2016-08-08] MEDS: SENNOSIDES 1 TAB PO SCH ×2 (09:46→21:18)
[2016-08-08] MEDS: MULTIVITAMINS 1 EACH TAB PO SCH (09:46)
[2016-08-08] MEDS: CHOLECALCIFEROL VIT D3 2,000 UNITS TAB/CAP PO SCH (09:46)
[2016-08-08] MEDS: Desvenlafaxine Succinate [Pristiq] 25 MG PO SCH (10:31)
[2016-08-08] MEDS: FUROSEMIDE 20 MG TAB PO PRN (15:52)
[2016-08-08] MEDS: TAPENTADOL HCL 50 MG TAB PO PRN (21:18)
[2016-08-08] MEDS: ZOLPIDEM TARTRATE 5 MG TAB PO PRN (22:09)
[2016-08-09] MEDS: LEVOTHYROXINE 100 MCG TAB PO SCH (05:53)
[2016-08-09] MEDS: LEVOTHYROXINE 75 MCG TAB PO SCH (05:53)
[2016-08-09] MEDS: ACETAMINOPHEN 325 MG TAB PO PRN ×2 (05:58→11:34)
[2016-08-09] MEDS: POLYETHYLENE GLYCOL 3350 17 GM PKT PO SCH (08:16)
[2016-08-09] MEDS: CHOLECALCIFEROL VIT D3 2,000 UNITS TAB/CAP PO SCH (08:17)
[2016-08-09] MEDS: SENNOSIDES 1 TAB PO SCH (08:17)
[2016-08-09] MEDS: MULTIVITAMINS 1 EACH TAB PO SCH (08:17)
[2016-08-09] MEDS: Desvenlafaxine Succinate [Pristiq] 25 MG PO SCH (08:38)
[2016-08-09] MEDS: ENOXAPARIN 40 MG/0.4 ML SYR SC SCH (08:39)
[2016-08-09 08:47] VITALS: BP 128/76; PULSE 70; TEMP 98.4; O2SAT 96
[2016-08-09] MEDS: FUROSEMIDE 20 MG TAB PO PRN (11:35)
== END 2016-08-09 14:30 | disposition home or self-care (01) | DRG 950 ==
LOC: BREH 13:30
PROVIDERS: ADMIT Internal Medicine; ATTEND Internal Medicine
PROC: F0636ZZ Communicative/Cognitive Integration Skills Treatment of Neurological System - Whole Body (ICD-10-PCS; principal; 2016-07-30)
PROC: F07M3ZZ Motor Function Treatment of Musculoskeletal System - Whole Body (ICD-10-PCS; principal; 2016-07-30)
PROC: F08Z4ZZ Home Management Treatment (ICD-10-PCS; principal; 2016-07-30)
DX: Z48.811 Encounter for surgical aftercare following surgery on the nervous system (principal); D32.1 Benign neoplasm of spinal meninges; L23.1 Allergic contact dermatitis due to adhesives; E03.9 Hypothyroidism, unspecified; K59.00 Constipation, unspecified; G47.00 Insomnia, unspecified; R33.9 Retention of urine, unspecified; Z98.1 Arthrodesis status; Z96.652 Presence of left artificial knee joint
CPT/HCPCS: 97110-GO; 97110-GP; 97112-GP; 97116-GP; 97162-GP; 97166-GO; 97530-GO; 97530-GP; 97535-GO; 97760-GP; 99366-GO; J1650

== ENCOUNTER → 2016-10-11 | Outpatient (CLI) | payer OTHER | LOC: BMCIMAGING 14:12 | DX: Z12.31 Encounter for screening mammogram for malignant neoplasm of breast (principal) | CPT/HCPCS: G0202 ==

== ENCOUNTER → 2016-12-30 | Outpatient (CLI) | payer OTHER | LOC: FIMAGING 13:34 | PROVIDERS: ATTEND Obstetrics & Gynecology | DX: Z13.820 Encounter for screening for osteoporosis (principal) ==

== ENCOUNTER → 2017-11-07 | Outpatient (CLI) | payer OTHER | LOC: BMCIMAGING 14:36 | PROVIDERS: ATTEND Obstetrics & Gynecology | DX: Z12.31 Encounter for screening mammogram for malignant neoplasm of breast (principal) ==

== ENCOUNTER → 2017-11-21 | Outpatient (CLI) | payer OTHER | LOC: FIMAGING 11:44 | PROVIDERS: ATTEND Obstetrics & Gynecology | DX: R92.8 Other abnormal and inconclusive findings on diagnostic imaging of breast (principal) ==

== ENCOUNTER → 2018-11-20 | Outpatient (CLI) | payer OTHER | LOC: BMCIMAGING 13:22 ==